=== PATIENT | male | born 1975 | race Caucasian/White ===

== ENCOUNTER → 2020-09-15 07:59 | Outpatient (BNVA) | payer OTHER, SELFPAY | PROVIDERS: Family Provider Family Medicine; PCP Family Medicine; Visit Provider Specialist | DX: G56.01 Carpal tunnel syndrome, right upper limb (principal) | CPT/HCPCS: 95910; 99203 ==

== ENCOUNTER 2020-12-07 21:51 | Emergency (ER) | payer OTHER, SELFPAY ==
[2020-12-07 22:02] VITALS: BP 143/93; PULSE 66; RESP 22; TEMP 35.9; O2SAT 98; BMI 35.6
--- NOTE | 2020-12-07 22:13 | XRR_ITS ---
PROCEDURE INFORMATION: Exam: XR Chest, 1 View Exam date and time: 12/07/2020 10:27 PM Age: 45 years old Clinical indication: Chest pain; Type not specified; Additional info: Cp and increased blood pressure TECHNIQUE: Imaging protocol: XR of the chest Views: 1 view. COMPARISON: DX Chest 2 views* [id number] 08/16/2014 11:27 AM FINDINGS: Lungs: Lungs are well aerated without a focal area of consolidation. Pleural spaces: Unremarkable. No pleural effusion. No pneumothorax. Heart/Mediastinum: The cardiac silhouette appears enlarged, some of which is magnification related to the AP projection. Bones/joints: Unremarkable. XR/XR chest 1V portable [id number] IMPRESSION: Lungs are well aerated without a focal area of consolidation.
--- NOTE | 2020-12-07 22:13 | ECG_ITS ---
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 Measurements Intervals [place] Rate: 65 P: 54 MA: 136 QRS: 63 QRSD: 92 T: 50 QT: 402 QTc: 420 Interpretive Statements SINUS RHYTHM No previous ECG available for comparison Electronically Signed On 12-08-2020 17:09:43 MANAGER ANALYSIS by Brent Watkins M.D. [id number]
[2020-12-07] MEDS: ondansetron 2 mg/ML SDV 2 mL 4 MG IVP (22:34)
[2020-12-07 22:35] VITALS: RESP 18; O2SAT 99
[2020-12-07] MEDS: morphine 4 mg/mL SDV 1 mL IVP (22:35)
[2020-12-07 22:37] VITALS: BP 159/83; PULSE 63; RESP 24; O2SAT 99
[2020-12-07 22:43] LABS: Basophils # 0.1 10^3/uL (0.0-0.1); Eosinophils # 0.3 10^3/uL (0.0-0.8); Eosinophils % 4.2 %; Lymphocytes # 2.3 10^3/uL (0.8-4.8); Lymphocytes % 38.9 %; Mean Corpuscular HGB Conc 34.1 g/dL (30.0-36.0); Mean Corpuscular Hemoglobin 29.6 pg (28.0-34.0); Mean Platelet Volume 10.6 fL (7.4-10.4); Monocytes # 0.5 10^3/uL (0.2-0.9); Monocytes % 7.6 %; Neutrophils # 2.87 10^3/uL (1.8-7.7); Neutrophils % 48.1 %; Nucleated Red Blood Cells % 0 %; Platelet Count 200 10^3/cmm (130-400); Red Blood Count 5.06 10^6/uL (4.1-5.3); Red Cell Distribution Width 12.3 % (12.1-15.1)
[2020-12-07 23:11] LABS: Troponin(5th) Baseline 6 ng/L (0-15)
[2020-12-07 23:18] LABS: Alanine Aminotransferase 22 U/L (0-41); Albumin Level 4.3 g/dL (3.5-5.2); Alkaline Phosphatase 73 IU/L (40-130); Anion Gap 15.7 (5-19); Aspartate Amino Transferase 20 U/L (0-40); Blood Urea Nitrogen 11 mg/dL (6-20); Calcium 9.4 mg/dL (8.5-10.5); Carbon Dioxide 26 mmol/L (22-29); Chloride 101 mmol/L (98-107); Globulin 2.3 g/dL (1.3-4.6); Glomerular Filtration Rate 91.7 mL/min (90-130); Glucose 181 mg/dL (65-115); NT Pro B Type Natriuretic Pept 13 pg/mL (0-125); Osmolality Calculated 292 mOsm/kg (285-295); Potassium 3.7 mmol/L (3.5-5.1); Sodium 139 mmol/L (136-145); Total Bilirubin 0.5 mg/dL (0.15-1.2); Total Protein 6.6 g/dL (6.6-8.7)
[2020-12-07] MEDS: haloperidol inj 5 mg/mL INJ 1 mL 3 MG IVP (23:35)
[2020-12-07 23:36] VITALS: BP 142/84; PULSE 61; RESP 18; O2SAT 98
[2020-12-07 23:48] LABS: INR 0.95 (0.8-1.2)
[2020-12-07 23:49] LABS: Partial Thromboplastin Time 30.8 SECONDS (23.9-36.7)
--- NOTE | 2020-12-07 23:50 | W.ED.CHESTPA ---
HPI - Chest Pain General: Chief Complaint: Chest Pain Stated Complaint: cp Time Seen by Provider: 12/07/20 22:12 History of Present Illness: HPI narrative: 45-year-old male with no prior history of coronary disease. He does have a history of GERD. He reports pain to the left side of his lower chest that started suddenly around 8:30 PM. He can feel it when he breathes, but it does make his pain worse. It is more of a sharp pain. He is mildly nauseated, has not thrown up. No diaphoresis. No radiation of the pain. He denies fever or cough. MD complaint: chest pain Onset (ago): hour(s) Timing of current episode: constant Prior episodes: No Onset: during rest Pain location: left chest Pain radiation: none Severity: severe Quality: aching and sharp Relieving factors: nothing Exacerbating factors: nothing Associated symptoms: Reports nausea; Deny abdominal pain, dyspnea, fever(s), leg edema, palpitations or vomiting Review of Systems Const: Denies: fever(s) Eyes: Denies: change in vision ENMT: Denies: odynophagia or sinus pain Card: Reports: chest pain; Denies: palpitations or irregular heart rhythm Resp: Denies: dyspnea GI: Reports: nausea; Denies: abdominal pain or vomiting : Denies: difficulty urinating or hematuria Musc: Denies: back pain or joint warmth Skin/Breast: Denies: rash or erythema Neuro: Denies: headache(s), dizziness or vertigo Psych: Denies: anxiety Physical Exam Const: GENERAL APPEARANCE: well developed and other (in pain) ORIENTATION/CONSCIOUSNESS: Yes oriented to person, Yes oriented to place and Yes oriented to time HENMT: COMMON NORMALS: normocephalic, external ears normal and Normal external nose present HEAD & SCALP: normocephalic FACE & SINUS: normal facial exam NOSE: Normal external nose present EXTERNAL EAR: Yes external ears normal Eye: COMMON NORMALS: Equal, round and reactive pupils present, EOMs intact bilaterally and conjunctivae normal EYELID: eyelids normal CONJUNCTIVA: Yes conjunctivae normal PUPIL: Yes Equal, round and reactive pupils present Neck/C-Spine: GENERAL: No tracheal deviation Chest: COMMONS NORMALS: normal inspection of the chest CHEST: No tenderness Resp: COMMON NORMALS: clear to auscultation bilaterally EFFORT & INSPECTION: No tachypneic, No respiratory distress, No retractions, No uses accessory muscles and No tracheal deviation AUSCULTATION: clear to auscultation bilaterally, no rhonchi, no wheezes and lung sounds not diminished Cardio: COMMON NORMALS: regular rate and regular rhythm RATE: regular rate RHYTHM: regular rhythm HEART SOUNDS: no murmurs PERIPHERAL PULSES: radial pulses present GI: INSPECTION: No abdominal distension AUSCULTATION: No Hyperactive bowel sounds present and No Hypoactive bowel sounds present PALPATION: No Guarding due to palpation present (GI) and No Rigid due to palpation PERCUSSION: no dullness to percussion and no tympanic to percussion Neuro: SENSORIUM/ORIENTATION: Yes oriented to person, Yes oriented to place and Yes oriented to time Psych: COMMON NORMALS: mental status grossly normal Skin: COMMON NORMALS: no rashes or lesions noted GENERAL SKIN EXAM: no rashes or lesions noted Course Vital Signs: Vital signs: Vital Signs Temperature 96.7 F L 12/07/20 22:02 Pulse Rate 79 12/08/20 01:42 Respiratory Rate 13 12/08/20 01:42 Blood Pressure 143/79 12/08/20 01:42 Pulse Oximetry 95 12/08/20 01:42 MDM - Chest Pain MDM Narrative: Medical decision making narrative: 45-year-old male with left-sided chest discomfort. It is essentially resolved now. He sitting up in bed wanting to go home. He is better after morphine. He got nauseated, so was given a dose of Haldol which resolved that. Is nontachycardic, nonhypoxic. His blood pressure is 143/79. His D-dimer is 0.36. His troponin was 6 at baseline, and his 2-hour is pending. His EKG shows a normal sinus rhythm with normal axes and intervals and no ST changes. His rate was 65. His chest x-ray is negative. Provided his troponin remains normal, he will be discharged home. Lab Data: Labs: Lab Results 12/07/20 12/07/20 12/07/20 Range/Units 22:19 22:19 22:19 WBC 6.0 (4.0-10.0) 10^3/ uL RBC 5.06 (4.1-5.3) 10^6/u L Hgb 15.0 (11.7-16.6) g/dL Hct 44.0 (42.0-52.0) % MCV 87.0 (80-94) fL MCH 29.6 (28.0-34.0) pg MCHC 34.1 (30.0-36.0) g/dL RDW 12.3 (12.1-15.1) % Plt Count 200 (130-400) 10^3/c mm MPV 10.6 H (7.4-10.4) fL Neut % (Auto) 48.1 % Lymph % (Auto) 38.9 % [place] % (Auto) 7.6 % Eos % (Auto) 4.2 % Baso % (Auto) 1.0 % Neut # (Auto) 2.87 (1.8-7.7) 10^3/u L Lymph # (Auto) 2.3 (0.8-4.8) 10^3/u L [place] # (Auto) 0.5 (0.2-0.9) 10^3/u L Eos # (Auto) 0.3 (0.0-0.8) 10^3/u L Baso # (Auto) 0.1 (0.0-0.1) 10^3/u L Nucleated RBC % (a uto) 0 % Nucleated RBCs # 0.0 /100WBC PT 12.90 (12.1-14.9) SECO NDS INR 0.95 (0.8-1.2) APTT 30.8 (23.9-36.7) SECO NDS D-Dimer 0.36 (0-0.59) ug/mIFE U Sodium 139 (136-145) mmol/L Potassium 3.7 (3.5-5.1) mmol/L Chloride 101 (98-107) mmol/L Carbon Dioxide 26 (22-29) mmol/L Anion Gap 15.7 (5-19) BUN 11 (6-20) mg/dL Creatinine 0.9 (0.7-1.2) mg/dL GFR Calculation 91.7 (90-130) mL/min Glucose 181 H (65-115) mg/dL Calculated Osmolal ity 292 (285-295) mOsm/k g Calcium 9.4 (8.5-10.5) mg/dL Total Bilirubin 0.5 (0.15-1.2) mg/dL AST 20 (0-40) U/L ALT 22 (0-41) U/L Alkaline Phosphata se 73 (40-130) IU/L Troponin T Baselin e (0-15) ng/L Troponin T 120 Min [place] (0-15) ng/L Delta Troponin T (0-10) ABS# NT-Pro-B Natriuret Pep 13 (0-125) pg/mL Total Protein 6.6 (6.6-8.7) g/dL Albumin 4.3 (3.5-5.2) g/dL Globulin 2.3 (1.3-4.6) g/dL Lipase (13-60) U/L 12/07/20 12/07/20 12/08/20 Range/Units 22:19 22:19 00:18 WBC (4.0-10.0) 10^3/ uL RBC (4.1-5.3) 10^6/u L Hgb (11.7-16.6) g/dL Hct (42.0-52.0) % MCV (80-94) fL MCH (28.0-34.0) pg MCHC (30.0-36.0) g/dL RDW (12.1-15.1) % Plt Count (130-400) 10^3/c mm MPV (7.4-10.4) fL Neut % (Auto) % Lymph % (Auto) % [place] % (Auto) % Eos % (Auto) % Baso % (Auto) % Neut # (Auto) (1.8-7.7) 10^3/u L Lymph # (Auto) (0.8-4.8) 10^3/u L [place] # (Auto) (0.2-0.9) 10^3/u L Eos # (Auto) (0.0-0.8) 10^3/u L Baso # (Auto) (0.0-0.1) 10^3/u L Nucleated RBC % (a uto) % Nucleated RBCs # /100WBC PT (12.1-14.9) SECO NDS INR (0.8-1.2) APTT (23.9-36.7) SECO NDS D-Dimer (0-0.59) ug/mIFE U Sodium (136-145) mmol/L Potassium (3.5-5.1) mmol/L Chloride (98-107) mmol/L Carbon Dioxide (22-29) mmol/L Anion Gap (5-19) BUN (6-20) mg/dL Creatinine (0.7-1.2) mg/dL GFR Calculation (90-130) mL/min Glucose (65-115) mg/dL Calculated Osmolal ity (285-295) mOsm/k g Calcium (8.5-10.5) mg/dL Total Bilirubin (0.15-1.2) mg/dL AST (0-40) U/L ALT (0-41) U/L Alkaline Phosphata se (40-130) IU/L Troponin T Baselin e 6 (0-15) ng/L Troponin T 120 Min [place] 6.00 (0-15) ng/L Delta Troponin T 0 (0-10) ABS# NT-Pro-B Natriuret Pep (0-125) pg/mL Total Protein (6.6-8.7) g/dL Albumin (3.5-5.2) g/dL Globulin (1.3-4.6) g/dL Lipase 45 (13-60) U/L Discharge Plan Discharge Patient Disposition: Home Clinical Impression: Chest pain Qualifiers: Chest pain type: unspecified Qualified Code(s): R07.9 - Chest pain, unspecified Condition: Stable Prescriptions: No Action Zyrtec 10 mg capsule 10 mg PO DAILY RF: 0 omeprazole 20 mg capsule,delayed release(DR/EC) 20 mg PO DAILY RF: 0 cholecalciferol (vitamin D3) 25 mcg (1,000 unit) capsule 25 mcg PO DAILY RF: 0 Discharge Orders: Discharge ED (Routine); Ordered 12/08/20 Ordered By: Ganga Hernandez Discharge Diet: Usual diet Discharge Activity: Resume usual activity Activity Restrictions/Additional Instructions: Return for return or worsening of chest pain, shortness of breath, fever greater than 100, vomiting, other concerning symptoms. Coding Level of Care Code ED Yard Manager for Chg Fwd Exam Comprehensive
[2020-12-07 23:51] LABS: D Dimer 0.36 ug/mIFEU (0-0.59)
[2020-12-08 00:20] VITALS: BP 139/78; PULSE 79; RESP 29; O2SAT 93
[2020-12-08 00:22] LABS: Lipase 45 U/L (13-60)
[2020-12-08 00:50] VITALS: BP 147/81; PULSE 93; RESP 18; O2SAT 96
[2020-12-08 01:16] LABS: Troponin 5 2HR Delta 0 ABS# (0-10)
[2020-12-08 01:42] VITALS: BP 143/79; PULSE 79; RESP 13; O2SAT 95
== END 2020-12-08 01:42 | disposition home or self-care (01) ==
PROVIDERS: Emergency Provider Emergency Medicine
DX: R07.9 Chest pain, unspecified (principal)
CPT/HCPCS: 12345; 71045; 80053; 83690; 83880; 84484; 85025; 85378; 85610; 85730; 93005; 96374; 96375; 99283; 99284; J1630; J2270; J2405

== ENCOUNTER 2021-08-20 10:35 | Outpatient (RCR) | payer OTHER, SELFPAY | END 2021-10-13 23:00 | disposition home or self-care (01) | LOC: SPT 10:35 | PROVIDERS: Referring Provider Orthopaedic Surgery; Visit Provider Orthopaedic Surgery | DX: M19.012 Primary osteoarthritis, left shoulder (principal) | CPT/HCPCS: 97110; 97161 ==

== ENCOUNTER → 2023-09-22 14:09 | Outpatient (BNVA) | payer OTHER, SELFPAY | PROVIDERS: Referring Provider Specialist; Visit Provider Specialist | DX: G56.02 Carpal tunnel syndrome, left upper limb (principal) | CPT/HCPCS: 95910 ==

== ENCOUNTER 2024-08-10 06:00 | Outpatient (CLI) | payer OTHER, SELFPAY | END 2024-08-10 23:59 | disposition home or self-care (01) | LOC: SPT 08-13 10:38 | PROVIDERS: Visit Provider Podiatrist Foot & Ankle Surgery | DX: Z46.89 Encounter for fitting and adjustment of other specified devices (principal); M25.572 Pain in left ankle and joints of left foot | CPT/HCPCS: L1902 ==

== ENCOUNTER → 2024-08-10 11:37 | Outpatient (BNVA) | payer OTHER, SELFPAY | PROVIDERS: Visit Provider Podiatrist Foot & Ankle Surgery | DX: M25.572 Pain in left ankle and joints of left foot (principal); M84.372A Stress fracture, left ankle, initial encounter for fracture; L85.3 Xerosis cutis | CPT/HCPCS: 73610 ==

== ENCOUNTER 2024-08-15 16:10 | Outpatient (CLI) | payer OTHER, SELFPAY ==
--- NOTE | 2024-08-15 16:15 | MR_ITS ---
WS: [id number] MRI LEFT ANKLE WITHOUT CONTRAST. COMPARISON: Radiograph 08/10/2024 Multiplanar, multisequence imaging is performed without contrast. No fractures or marrow edema. Normal tibiotalar alignment. No fluid in the syndesmosis. No marrow ambrosio ma in the calcaneus or talus. No osteochondral lesions. Large amount of fluid within the peroneal tendon sheath with abnormal peroneal brevis and longus tend ons. Peroneal tendons are no longer health adjacent to the calcaneus indicating torn peroneal retinac ulum. The peroneus longus tendon is slightly enlarged and there is a small amount of edema and probab le partial tear lateral to the calcaneus. The peroneus brevis tendon is markedly abnormal. There is a split tear with marked enlargement and heterogeneous signal. Essentially completely torn with partia l invagination from the peroneus longus tendon. There is a large fluid gap indicating complete tear. Distal of the peroneus brevis can be noted extending to the fifth metatarsal but there is increased f luid within the tendon itself. Flexor hallucis longus, flexor digitorum longus in the posterior tibial tendons appear appropriate. N o small amount of fluid in the posterior tibial tendon sheath is normal. Anterior and posterior talofibular ligaments appear to be intact. There is no adjacent fluid. The ant erior talofibular ligament is not well visualized which is probably due to position of the patient. N ormal deltoid ligament. Spring ligament is normal. Calcaneofibular ligament is very small caliber and wavy and not visualized in its entirety. There is adjacent fluid related to the peritoneal injury. MR/MR ankle LT wo con* [id number] IMPRESSION: 1. Markedly abnormal peroneal tendons and tendon sheath. Large amount of heter ogeneous fluid in the tendon sheath surrounding the tendons. 2. High-grade split tear of the proximal peroneus brevis with invagination of the peroneus longus. Slightly distal to the split tear is a full-thickness tear of the peroneal brevis. 3. Markedly thickened edematous peroneus longus tendon with a partial tear. 4. Displaced peroneal tendons from the calcaneus consistent with torn peroneal retinaculum. 5. No fractures or marrow edema.
== END 2024-08-15 16:11 | disposition home or self-care (01) ==
LOC: RAD 16:12
PROVIDERS: PCP Family Medicine; Visit Provider Family Medicine
DX: S86.312A Strain of muscle(s) and tendon(s) of peroneal muscle group at lower leg level, left leg, initial encounter (principal); M76.72 Peroneal tendinitis, left leg; X58.XXXA Exposure to other specified factors, initial encounter
CPT/HCPCS: 73721

== ENCOUNTER 2024-09-17 05:42 | Day surgery (SDC) | payer OTHER, SELFPAY ==
[2024-09-17] VITALS (10 sets, daily range): BP systolic 128–141; BP diastolic 70–83; PULSE 64–87; RESP 8–20; TEMP 36.1–36.6; O2SAT 91–95
--- NOTE | 2024-09-17 06:02 | P.ANESASSM_ITS ---
Pre-Anesthetic Assessment Height/Weight: Height 6 ft Preop Diagnosis: Peoneal tendon tear Operation Date: 09/17/24 07:00 Proposed Procedures p Primary repair peroneus brevis tendon left ankle and Peroneus longus tenosynovectomy(Left) - BENJAMÍN AnnM Was Beta Blanquita taken within 24 hours: N/A Was Clonidine taken within 24 hours: N/A Social No alcohol and No tobacco Exam alert, oriented x 3, clear to auscultation bilaterally and regular rate & rhythm Airway Submandibular: within normal limits Cervical ROM: within normal limits Mallampati: Class III Comments: Comments: lower implants Anesthetic Plan ASA status: 3 Anesthesia: General and Regional (specify below) Other: Patient states that he is somewhat slow to wake up from anesthesia NPO since yesterday History of hypertension on hydrochlorothiazide LORETTA on CPAP GERD on omeprazole and Pepcid Prior EKG showing sinus rhythm Plan for general with post induction popliteal block Medications/Allergies Home Medications Medication Instructions Recorded Confirmed Last Taken Type cetirizine 10 mg capsule (Zyrtec) 10 mg PO DAILY 09/15/20 09/17/24 09/16/24 History cholecalciferol (vitamin D3) 25 25 mcg PO DAILY 09/15/20 09/17/24 09/16/24 History mcg (1,000 unit) capsule ezetimibe 10 mg tablet 10 mg PO DAILY 04/25/23 09/17/24 09/16/24 History famotidine 40 mg tablet 40 mg PO DAILY 04/25/23 09/17/24 09/16/24 History hydrochlorothiazide 25 mg tablet 25 mg PO DAILY 04/25/23 09/17/24 09/07/24 History venlafaxine 150 mg 150 mg PO DAILY 04/25/23 09/17/24 09/16/24 History capsule,extended release 24 hr fluticasone propionate 50 2 spray intranasal PRN 06/09/23 09/17/24 09/16/24 History mcg/actuation nasal spray,suspension ASO brace #1 ea 08/10/24 08/23/24 Unknown Rx omeprazole 20 mg capsule,delayed 20 mg PO DAILY 09/07/24 09/17/24 09/16/24 History release Allergies Allergy/AdvReac Type Severity Reaction Status Date / Time No Known Allergies Allergy Verified 08/23/24 09:41 [facility] Anesthesia Social History Smoking and tobacco/nicotine status: never used tobacco/nicotine Data Anesthesia Cardiac Studies: No Data to Display
[2024-09-17] MEDS: sodium chloride 0.9% 1,000 ML 30 ML IV (06:27)
[2024-09-17] MEDS: acetaminophen 1,000 MG/100 ML PIGGYBACK 400 MG IV (06:30)
[2024-09-17] MEDS: gabapentin 300 mg Capsule PO (06:31)
--- NOTE | 2024-09-17 06:45 | P.HPUD_ITS ---
Surgery/Procedure H&P Update DATE OF PROCEDURE: September 17, 2024 DATE H&P PERFORMED: 08/23/24 H&P UPDATE INFORMATION: I have reviewed H&P completed within last 30 days, I have examined patient prior to procedure, No changes to prior documentation and H&P is in [facility] [place] [place] EMR on date indicated PREOP DIAGNOSIS: Peoneal tendon tear PLANNED PROCEDURE: Operation Date: 09/17/24 07:00 Proposed Procedures p Primary repair peroneus brevis tendon left ankle and Peroneus longus tenosynovectomy(Left) - Ronaldo Carter DPM
[2024-09-17] MEDS: ceFAZolin 3,000 MG in sodium chloride 0.9% (plus) 100 ML 200 MG IV (06:59)
[2024-09-17 07:01] LABS: Blood Urea Nitrogen 10 mg/dL (6-20); Calcium 8.6 mg/dL (8.5-10.5); Carbon Dioxide 27 mmol/L (22-29); Chloride 102 mmol/L (98-107); Creatinine Clr Calc Pharmacy 143.3784; Glomerular Filtration Rate 90.4 mL/min (90-130); Glucose 119 mg/dL (65-115); Osmolality Calculated 288 mOsm/kg (285-295); Sodium 139 mmol/L (136-145)
[2024-09-17 07:05] LABS: Anion Gap 13.8 (5-19); Potassium 3.8 mmol/L (3.5-5.1)
--- NOTE | 2024-09-17 07:15 | ANES.PROC ---
Anesthesia Procedures Procedure/Date: 09/17/24 Nerve Block ^: Nerve Block 1: Main Anesthesia: general anesthesia Time Out Performed: Yes Consent: requested by attending/covering physician and from patient Nerve block location: popliteal Anesthesia monitors applied: pulse oximetry, EKG, BP cuff and oxygen Nerve block position: supine Anesthetic Used: ropivicaine 0.5% Amount of anesthesia used (mL): 30 Ultrasound used to: recognize landmarks Nerve Stimulator Used?: Yes Interscalene/Femoral BLK: other needle (pjunk 6inch) Injection: neg aspiration of heme Patient Tolerated Procedure: well Complications: none
--- NOTE | 2024-09-17 08:04 | SUR.OPER ---
attempted to notified via phone, and left messgae about pt status on cell phone.
--- NOTE | 2024-09-17 08:35 | P.BOP_ITS ---
Date of procedure: 09/17/2024 Surgeon name: Dr. Ronaldo Carter D.P.M. Patient Access Director(s) name(s): SHANTEL Procedure(s) performed: Peroneus brevis tendon repair, peroneus longus tenosynovectomy Description of findings: Partial rupture of peroneus brevis tendon. Split longitudinal tear peroneus brevis tendon. Significant amount of tenosynovitis and peroneal tendon sheath peroneus longus intact Estimated blood loss: 5 cc Tourniquet time: 60 minutes Specimen(s) removed: None Post-operative diagnosis: Peroneal tendon tear left lower extremity
--- NOTE | 2024-09-17 08:36 | P.OP_ITS ---
Operative Report Date of procedure: September 17, 2024 Surgeon: Ronaldo Carter DPM Procedure: Date of procedure: 09/17/2024 Pre-op diagnosis: #1 split tear peroneus brevis tendon left ankle #2 tenosynovitis peroneus longus tendon left ankle Post-op diagnosis: Same Post-op findings: Partial rupture of peroneus brevis tendon with retraction and split tear peroneus brevis tendon. Significant tenosynovitis surrounding peroneus longus tendon Procedure done: 1. repair of peroneus brevis tendon split tear left ankle CPT 27545 2. Tenosynovectomy peroneus longus left ankle CPT 18355 Implants: None Specimens removed: None Surgeon: Dr. Ronaldo Carter DPM Inspector Subassembly: SHANTEL Estimated blood loss: 5 cc Tourniquet time: 60 minutes Complications: None Patient is a 48-year-old male that has a history of split tear peroneus brevis tendon with tenosynovitis surrounding peroneus longus tendon is visualized on MRI. The patient has had the aforementioned chief complaint for some time. Conservative treatment measures have been attempted and the patient has opted for surgical intervention at this time. A lengthy discussion regarding the procedure, including risks and complications has been had with the patient and is noted in the recent clinic note. Written and verbal consent have been obtained. All patient questions have been answered to the patient?s satisfaction. No written or verbal guarantees have been given or implied. The patient has been NPO since midnight. The history has been reviewed and the history and physical is current. The signed consent was confirmed and placed in the patient chart. Patient imaging has been reviewed and is consistent with the diagnosis. Under mild sedation, the patient was brought into the operating room and placed on the table in the supine position. IV antibiotics were given by the anesthesia team as preoperative surgical prophylaxis. General sedation was then performed by the anesthesiateam. A popliteal block was performed by the anesthesia department. A pneumatic tourniquet was then placed about the left thigh. The operative extremity was then prepped and draped in the usual fashion. The extremity was then elevated and exsanguinated before the tourniquet was inflated to 325 mmHg. After inflation, the following procedure was then performed. Attention was directed to the lateral aspect of the left ankle. A 10 cm racquet style incision was made overlying the peroneal tendons using a #15 blade. Dissection was carried down through subcutaneous and superficial fascia. Any bleeders were cauterized as necessary. Dissection was carried down to the level of the peroneal tendon sheath which was incised with a #15 blade. Upon incising the sheath a large amount of synovitis was noted to come from the sheath. Metzenbaum scissors were used to open up the entire sheath in the retromalleolar and infra malleoli are area. The peroneal tendons were visualized. The peroneus brevis immediately was noted to have a partial rupture with retraction and the ruptured and noted to have balled/rounded appearance indicating chronic partial rupture. The ruptured ends were excised using a #15 blade and passed from the operative field. The peroneus brevis was further examined and was noted to have a split longitudinal tear. Greater than 50% of the peroneus brevis tendon remained. The peroneus longus tendon was visualized. No visible split tear in the peroneus longus was visualized. However, significant amount of tenosynovitis surrounding the peroneus longus tendon was seen. Using a #15 blade and pickups the surrounding tenosynovitis was removed from the peroneus l ongus and passed from the operative field. Next, attention was directed to repair the peroneus brevis tendon. Using 2-0 FiberWire the peroneus brevis tendon was retubularized in standard fashion. The tendons were then placed in their appropriate position before the site was irrigated with copious amounts of sterile saline. Next, the peroneal retinaculum was repaired using 2-0 Vicryl. Deep tissue was closed with 2-0 Vicryl followed by subcuticular closure with 3-0 Vicryl and skin closure with 3-0 nylon in horizontal mattress fashion. The tourniquet was let down and good hyperemic response was noted to all digits of the left foot. Hemostasis was noted to be achieved. The incision site was dressed with Xeroform, 4 x 4 gauze, Kerlix, Zachery bandage before patient was placed in a cam boot. The patient tolerated the procedure and anesthesia well and without complication. The patient was transported from the operating room to the recovery room with vital signs stable and vascular status intact to all digits of the left foot. The patient was given both written and verbal instructions to remain nonweightbearing to the operative extremity, to keep dressings/splint clean, dry and intact and to take pain medication as directed. The patient will follow-up in the outpatient setting at their scheduled appointment. The patient was discharged with my personal number and was instructed to call if any questions or issues should arise. They were discharged home once anesthesia criteria was met.
--- NOTE | 2024-09-17 09:50 | ANE.PACU2 ---
Inpatient post-anesthesia follow up: Airway intact: Yes Vital signs: Temperature 97.9 F Pulse Rate 76 Respiratory Rate 18 Blood Pressure 137/78 Pulse Oximetry 94 Oxygen Delivery Me thod Room Air Oxygen Flow Rate Fraction of Inspir ed Oxygen Hydration adequate: Yes Nausea and vomiting: No Pain level: 1 Mental status: Baseline
== END 2024-09-17 09:50 | disposition home or self-care (01) ==
PROVIDERS: Student in an Organized Health Care Education/Training Program; PCP Family Medicine; Visit Provider Podiatrist Foot & Ankle Surgery
PROC: (CPT 27659; principal; 2024-09-17 07:00)
DX: S96.812A Strain of other specified muscles and tendons at ankle and foot level, left foot, initial encounter (principal); X58.XXXA Exposure to other specified factors, initial encounter; M65.872 Other synovitis and tenosynovitis, left ankle and foot; I10 Essential (primary) hypertension; G47.33 Obstructive sleep apnea (adult) (pediatric); K21.9 Gastro-esophageal reflux disease without esophagitis
CPT/HCPCS: 27659; 27680; 36415; 80048; C1713; C1762; J0131; J0690; J1100; J2405; J2704; J2795; J3010; J7030

== ENCOUNTER → 2024-10-01 12:35 | Outpatient (BNVA) | payer OTHER, SELFPAY | PROVIDERS: PCP Family Medicine; Visit Provider Podiatrist Foot & Ankle Surgery | DX: R03.0 Elevated blood-pressure reading, without diagnosis of hypertension; L85.3 Xerosis cutis; S86.312D Strain of muscle(s) and tendon(s) of peroneal muscle group at lower leg level, left leg, subsequent encounter; M84.37 Stress fracture, ankle, foot and toes; X58.XXXD Exposure to other specified factors, subsequent encounter | CPT/HCPCS: 99024 ==

== ENCOUNTER → 2024-10-15 13:49 | Outpatient (BNVA) | payer OTHER, SELFPAY | PROVIDERS: PCP Family Medicine; Visit Provider Podiatrist Foot & Ankle Surgery | DX: Z98.890 Other specified postprocedural states (principal); R03.0 Elevated blood-pressure reading, without diagnosis of hypertension; L85.3 Xerosis cutis; S86.312D Strain of muscle(s) and tendon(s) of peroneal muscle group at lower leg level, left leg, subsequent encounter; M84.37 Stress fracture, ankle, foot and toes; X58.XXXD Exposure to other specified factors, subsequent encounter | CPT/HCPCS: 99024 ==

== ENCOUNTER → 2024-11-05 13:42 | Outpatient (BNVA) | payer OTHER, SELFPAY | PROVIDERS: PCP Family Medicine; Visit Provider Podiatrist Foot & Ankle Surgery | DX: Z98.890 Other specified postprocedural states (principal); S86.312A Strain of muscle(s) and tendon(s) of peroneal muscle group at lower leg level, left leg, initial encounter; R03.0 Elevated blood-pressure reading, without diagnosis of hypertension; L85.3 Xerosis cutis; M84.372A Stress fracture, left ankle, initial encounter for fracture; X58.XXXA Exposure to other specified factors, initial encounter | CPT/HCPCS: 99024 ==

== ENCOUNTER 2024-11-15 10:31 | Outpatient (RCR) | payer OTHER, SELFPAY | END 2024-12-07 23:59 | disposition home or self-care (01) | LOC: SPT 10:31 | PROVIDERS: Visit Provider Podiatrist Foot & Ankle Surgery | DX: R26.89 Other abnormalities of gait and mobility (principal); M62.81 Muscle weakness (generalized) | CPT/HCPCS: 97110; 97161 ==

== ENCOUNTER → 2024-12-03 14:24 | Outpatient (BNVA) | payer OTHER, SELFPAY | PROVIDERS: Visit Provider Podiatrist Foot & Ankle Surgery | DX: Z98.890 Other specified postprocedural states (principal); R03.0 Elevated blood-pressure reading, without diagnosis of hypertension; L85.3 Xerosis cutis; S86.312D Strain of muscle(s) and tendon(s) of peroneal muscle group at lower leg level, left leg, subsequent encounter; M84.37 Stress fracture, ankle, foot and toes; X58.XXXD Exposure to other specified factors, subsequent encounter | CPT/HCPCS: 99024 ==